=== PATIENT | female | born 1975 ===

== ENCOUNTER 2020-09-14 13:39 | Outpatient (CLI) | payer OTHER | END 2020-09-14 13:43 | disposition home or self-care (01) | LOC: NUCLEAR 13:39 | PROVIDERS: ATTEND Internal Medicine | DX: M85.80 Other specified disorders of bone density and structure, unspecified site (principal); M81.0 Age-related osteoporosis without current pathological fracture ==

== ENCOUNTER 2022-03-29 07:24 | Outpatient (CLI) | payer OTHER | END 2022-03-29 07:26 | disposition home or self-care (01) | LOC: NUCLEAR 07:24 | PROVIDERS: ATTEND Internal Medicine Gastroenterology | DX: K21.00 Gastro-esophageal reflux disease with esophagitis, without bleeding (principal); K31.84 Gastroparesis | CPT/HCPCS: 78264; A9541 ==